=== PATIENT | male | born 2000 | race Two or more races ===

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

== ENCOUNTER 2025-02-21 12:31 | Emergency (ER) | payer MEDICAID ==
[~2025-02-21] VITALS: Ht 175.3 cm; Wt 77.0 kg
--- NOTE | 2025-02-21 13:16 | ED.PDOC ---
Musculoskeletal HPI Comments 24 year old male presents to the ED with a chief complaint of bilateral great toes ingrown nails onset 2 months. Mother states patient has been experiencing ingrown nails for the past 2 months, toes are swollen with erythema and tender to touch. Denies injury, numbness/tingling, nausea, vomiting, diarrhea, headache. No other symptoms or modifying factors present at this time. Time Seen by MD: 13:10 Primary Care Provider: Juan Estrada Notes: Medications, Allergies Allergies: Coded Allergies: NO KNOWN ALLERGIES (Unverified , 12/23/12) Home Meds Active Scripts Cephalexin (KEFLEX CAPSULE) 250 Mg Cp, 250 MG PO QID for 7 Days, #28 BOTTLE Prov:PILAR STEWART MD 02/21/25 Information Source: Patient, Relative (Mother) Mode of Arrival: Ambulatory Location: Bilateral Extremity Location: Great Toe Timing: Months Prehospital treatment: None Severity: Moderate Able to Move Extremity: Yes Bear Weight: Limited Pain: Moderate Mechanism: Other Circumstances: Other Onset of Symptoms: Spontaneous Symptoms: Pain, Erythema DVT Risk Factors: NONE Associated signs and symptoms: Other Past Medical History PAST MEDICAL HISTORY: Denies Surgical History: Denies all surgeries Family History Family History: Unknown Social History Smoker: Non-Smoker Alcohol: Denies ETOH Use Drugs: Denies Drug Use Lives In: Home Constitutional: denies: chills, diaphoresis, fatigue, fever, malaise, sweats, weakness, others EENTM: denies: blurred vision, double vision, ear bleeding, ear discharge, ear drainage, ear pain, ear ringing, eye pain, eye redness, hearing loss, mouth pain, mouth swelling, nasal discharge, nose bleeding, nose congestion, nose pain, photophobia, tearing, throat pain, throat swelling, voice changes, others Respiratory: denies: cough, hemoptysis, orthopnea, SOB at rest, shortness of breath, SOB with excertion, stridor, wheezing, others Cardiovascular: denies: chest pain, dizzy spells, diaphoresis, Dyspnea on exertion, edema, irregular heart beat, left arm pain, lightheadedness, palpitations, PND, syncope, others Gastrointestinal: denies: abdomen distended, abdominal pain, blood streaked bowels, constipated, diarrhea, dysphagia, difficulty swallowing, hematemesis, melena, nausea, poor appetite, poor fluid intake, rectal bleeding, rectal pain, vomiting, others Genitourinary: denies: burning, dysuria, flank pain, frequency, hematuria, incontinence, penile discharge, penile sore, pain, testicle pain, testicle swelling, urgency, others Neurological: denies: dizziness, fainting, headache, left sided numbness, left sided weakness, numbness, paresthesia, pre-existing deficit, right sided numbness, right sided weakness, seizure, speech problems, tingling, tremors, weakness, others Musculoskeletal: reports: others (bilateral great toe ingrown nail); denies: back pain, gout, joint pain, joint swelling, muscle pain, muscle stiffness, neck pain Integumetry: denies: bruises, change in color, change in hair/nails, dryness, laceration, lesions, lumps, rash, wounds, others Allergic/Immunocompromised: denies: Difficulty Healing, Frequent Infections, Hives, Itching, others Hematologic/Lymphatic: denies: anemia, blood clots, easy bleeding, easy bruising, swollen glands, others Endocrine: denies: excessive hunger, excessive sweating, excessive thirst, excessive urination, flushing, intolerance to cold, intolerance to heat, unexplained weight gain, unexplained weight loss, others Psychiatric: denies: anxiety, bipolar disorder, depression, hopeless, panic disorder, schizophrenia, sleepless, suicidal, others All Other Systems: Reviewed and Negative Physical Exam General Appearance: Moderate Distress, Normal HEENT: Normal ENT Inspection, Pharynx Normal, TMs Normal Neck: Full Range of Motion, Non-Tender, Normal, Normal Inspection Respiratory: Chest Non-Tender, Lungs Clear, No Accessory Muscle Use, No Respiratory Distress, Normal Breath Sounds Cardiovascular: No Edema, No JVD, No Murmur, No Gallop, Normal Peripheral Pulses, Regular Rate/Rhythm Breast Exam: Deferred Gastrointestinal: No Organomegaly, Non Tender, No Pulsatile Mass, Normal Bowel Sounds, Soft Genitalia: Deferred Pelvic: Deferred Rectal: Deferred Extremities: No calf tenderness, Normal capillary refill, Normal inspection, Normal range of motion, Non-tender, No pedal edema Musculoskeletal : Apperance: Normal Neurologic: Alert, graduate studies dean II-XII nml as Tested, No Motor Deficits, Normal Affect, Normal Mood, No Sensory Deficits Cerebellar Function: Normal Reflexes: Normal Skin: Dry, Normal Color, Warm Peripheral Pulses: 3+ Radial (R), 3+ Radial (L) Lymphatic: No Adenopathy Was a procedure done? Was a procedure done?: No Differential Diagnosis EXT Differential Diagnosis: Cellulitis, Sprain X-Ray, Labs, Meds, VS Patient alert. Has been treated here for ingrown toenail. Mild redness around his toes. Vitals stable. Answering questions. To prevent any infection he was given prescription of Keflex antibiotic. Was given referral to crew boss. Explained to the family. Was told to follow up with his primary care physician. Was told to come back if there is any problem. Time of 1ST Reevaluation: 13:40 Reevaluation 1ST: Improved Patient Education/Counseling: Diagnosis, Treatment, Prognosis Family Education/Counseling: Diagnosis, Treatment, Prognosis Departure 1 Departure Time of Disposition: 14:17 Impression: Primary Impression: Ingrowing toenail Disposition: 01 HOME / SELF CARE / HOMELESS Condition: Good e-Prescriptions Cephalexin (KEFLEX CAPSULE) 250 Mg Cp 250 MG PO QID for 7 Days, #28 BOTTLE Prov: PILAR STEWART MD 02/21/25 Discharged With: Self Critical Care Note Critical Care Time?: No Stability Stability form required: No Heart Score Heart Score: Heart Score Response (Comments) Value History N/A 0 EKG N/A 0 Age N/A 0 Risk Factors N/A 0 Troponin N/A 0 Total 0 I personally scribed for PILAR STEWART MD ([email or web address]) on 02/21/25 at 13:16. Electronically submitted by Maria Teresa Holbrook ([email or web address]). PILAR STEWART MD Feb 21, 2025 13:16
[2025-02-21] MEDS ORDERED: CEPH250C PO (14:18)
[2025-02-21 14:40] VITALS: BP 136/82; PULSE 76; RESP 16; TEMP 97.8; O2SAT 98
== END 2025-02-21 14:49 | disposition home or self-care (01) ==
LOC: ER 12:31
DX: L60.0 Ingrowing nail (principal)

== ENCOUNTER 2025-02-23 18:26 | Emergency (ER) | payer MEDICAID ==
[~2025-02-23] VITALS: Ht 175.3 cm; Wt 82.9 kg
[~2025-02-23 18:26] MED LIST: CEPH250C PO
--- NOTE | 2025-02-23 18:50 | ED.PDOC ---
HPI Allergic reaction HPI Comments 24 year old male presents to the ED with a chief complaint of allergic reaction onset today (02/23/25). Patient has PMHX hard of hearing, mother translates for him. Mother states patient took Keflex 250mg, was prescribed for ingrown toe nail, shortly after began experiencing generalized rash with no difficulty br eathing. Denies chest pain, shortness of breath, sore throat, dizziness, blurry vision, nausea, vomiting, fevers. No other symptoms or modifying factors present at this time. Chief Complaint: Allergic Reaction Time Seen by MD: 18:40 Primary Care Provider: NONE Reviewed Notes: Nurses Notes, Medications, Allergies Allergies: Coded Allergies: Cephalexin (Verified Allergy, Severe, URTICARIA, SOB, 02/23/25) Home Meds Active Scripts Cephalexin (KEFLEX CAPSULE) 250 Mg Cp, 250 MG PO QID for 7 Days, #28 BOTTLE Prov:PILAR STEWART MD 02/21/25 Information Source: Patient, Relative (Mother) Mode of Arrival: Ambulatory Severity: Moderate Rash: Moderate SOB: None Difficulty swallowing: None Pruritus: None Timing: Hours Duration: Since onset Prehospital treatment: None Location: Generalized Exposed to: Medication (keflex) Developed: Rash History of: None Associated Sign and Symptoms: None Past Medical History Past Medical History (Other): hard of hearing Surgical History: Denies all surgeries Family History Family History: Unknown Social History Smoker: Non-Smoker Alcohol: Denies ETOH Use Drugs: Denies Drug Use Lives In: Home Constitutional: denies: chills, diaphoresis, fatigue, fever, malaise, sweats, weakness, others EENTM: denies: blurred vision, double vision, ear bleeding, ear discharge, ear drainage, ear pain, ear ringing, eye pain, eye redness, hearing loss, mouth pain, mouth swelling, nasal discharge, nose bleeding, nose congestion, nose pain, photophobia, tearing, throat pain, throat swelling, voice changes, others Respiratory: denies: cough, hemoptysis, orthopnea, SOB at rest, shortness of breath, SOB with excertion, stridor, wheezing, others Cardiovascular: denies: chest pain, dizzy spells, diaphoresis, Dyspnea on exertion, edema, irregular heart beat, left arm pain, lightheadedness, palpitations, PND, syncope, others Gastrointestinal: denies: abdomen distended, abdominal pain, blood streaked bowels, constipated, diarrhea, dysphagia, difficulty swallowing, hematemesis, melena, nausea, poor appetite, poor fluid intake, rectal bleeding, rectal pain, vomiting, others Genitourinary: denies: burning, dysuria, flank pain, frequency, hematuria, incontinence, penile discharge, penile sore, pain, testicle pain, testicle swelling, urgency, others Neurological: denies: dizziness, fainting, headache, left sided numbness, left sided weakness, numbness, paresthesia, pre-existing deficit, right sided numbness, right sided weakness, seizure, speech problems, tingling, tremors, weakness, others Musculoskeletal: denies: back pain, gout, joint pain, joint swelling, muscle pain, muscle stiffness, neck pain, others Integumetry: reports: rash (hives all over body); denies: bruises, change in color, change in hair/nails, dryness, laceration, lesions, lumps, wounds, others Allergic/Immunocompromised: denies: Difficulty Healing, Frequent Infections, Hives, Itching, others Hematologic/Lymphatic: denies: anemia, blood clots, easy bleeding, easy bruising, swollen glands, others Endocrine: denies: excessive hunger, excessive sweating, excessive thirst, excessive urination, flushing, intolerance to cold, intolerance to heat, unexplained weight gain, unexplained weight loss, others Psychiatric: denies: anxiety, bipolar disorder, depression, hopeless, panic disorder, schizophrenia, sleepless, suicidal, others All Other Systems: Reviewed and Negative Physical Exam General Appearance: Normal HEENT: Normal ENT Inspection, Pharynx Normal, TMs Normal, Other (no tongue swelling noted) Neck: Full Range of Motion, Non-Tender, Normal, Normal Inspection Respiratory: Chest Non-Tender, Lungs Clear, No Accessory Muscle Use, No Respiratory Distress, Normal Breath Sounds, Other (no airway obstruction noted) Cardiovascular: No Edema, No JVD, No Murmur, No Gallop, Normal Peripheral Pulses, Regular Rate/Rhythm Breast Exam: Deferred Gastrointestinal: No Organomegaly, Non Tender, No Pulsatile Mass, Normal Bowel Sounds, Soft Genitalia: Deferred Pelvic: Deferred Rectal: Deferred Extremities: No calf tenderness, Normal capillary refill, Normal inspection, Normal range of motion, Non-tender, No pedal edema Musculoskeletal : Apperance: Normal Neurologic: Alert, purchasing internship II-XII nml as Tested, No Motor Deficits, Normal Affect, Normal Mood, No Sensory Deficits Cerebellar Function: Normal Reflexes: Normal Skin: Rash (diffused hives all over body) Lymphatic: No Adenopathy Was a procedure done? Was a procedure done?: No Differential diagnosis (all) Differential Diagnosis: Anaphylaxis, Angioedema, Drug Reaction, Hypotension X-Ray, Labs, Meds, VS Vital Signs Date Time Temp Pulse Resp B/P (MAP) Pulse Ox O2 Delivery O2 Flow Rate FiO2 02/23/25 18:56 98.2 90 24 132/86 (101) 97 98.2 02/23/25 18:35 97.6 92 21 150/72 (98) 97 97.6 Current Medications Medications (Trade) Dose Ordered Sig/Vicki Route Start Time Stop Time Status Last Admin Diphenhydramine HCl (Benadryl Injection) 25 mg ONCE ONCE IM 02/23/25 18:45 02/23/25 18:46 DC 02/23/25 18:53 Methylprednisolone Sodium Succinate (Solu Medrol) 125 mg ONCE ONCE IM 02/23/25 18:45 02/23/25 18:46 DC 02/23/25 18:54 X-Ray, Labs, Meds, VS Comment Imaging: X-rays and CT scans were reviewed and interpreted by this provider, imaging shows no fractures and no pathological disease. Pending radiology review. Laboratory: Labs reviewed and interpreted by this provider. No significant abnormalities noted. Patient has prior medical visits reviewed. Med reconciliation performed Vital signs reviewed Time of 1ST Reevaluation: 19:10 Reevaluation 1ST: Unchanged Time of 2ND Reevaluation: 19:42 Reevaluation 2ND: Improved Patient Education/Counseling: Diagnosis, Treatment, Prognosis, Need For Follow Up (Follow up PCP next available appointment. Return to the emergency department if symptoms worsen.) Family Education/Counseling: Diagnosis, Treatment, Prognosis SEPSIS Sepsis Screen Vital Signs Date Time Temp Pulse Resp B/P (MAP) Pulse Ox O2 Delivery O2 Flow Rate FiO2 02/23/25 18:56 98.2 90 24 132/86 (101) 97 98.2 02/23/25 18:35 97.6 92 21 150/72 (98) 97 97.6 Medications Medications Dose Ordered Sig/Vicki Route Start Time Stop Time Status Last Admin Dose Admin Diphenhydramine HCl 25 mg ONCE ONCE IM 02/23/25 18:45 02/23/25 18:46 DC 02/23/25 18:53 Methylprednisolone Sodium Succinate 125 mg ONCE ONCE IM 02/23/25 18:45 02/23/25 18:46 DC 02/23/25 18:54 Departure 1 Departure Time of Disposition: 19:42 Impression: Primary Impression: Ingrowing toenail Additional Impression: Allergic reaction due to antibacterial drug Disposition: HOME / SELF CARE / HOMELESS Condition: Fair e-Prescriptions Sulfamethoxazole W/Trimethopri (Bactrim Ds Tablet) 1 Tab Tb 1 TAB PO BID for 7 Days, #14 TAB Prov: NASIM MURCIA 02/23/25 Discharged With: Self Comments Discontinue Keflex Critical Care Note Critical Care Time?: No Stability Stability form required: No I personally scribed for NASIM MURCIA ([email or web address]) on 02/23/25 at 18:50. Electronically submitted by Maria Teresa Holbrook ([email or web address]). NASIM MURCIA Feb 23, 2025 18:50
[2025-02-23] MEDS: diphenhdrAMINE HCL 50 MG/1 ML VL IM ONE (18:53)
[2025-02-23] MEDS: methylPREDNISolone SOD SUCC 125 MG/2 ML VL IM ONE (18:54)
[2025-02-23 18:56] VITALS: BP 132/86; PULSE 90; RESP 24; TEMP 98.2; O2SAT 97
[2025-02-23] MEDS ORDERED: BACDST PO (19:43)
== END 2025-02-23 20:01 | disposition home or self-care (01) ==
LOC: ER 18:26
DX: L60.0 Ingrowing nail (principal); T36.95XA Adverse effect of unspecified systemic antibiotic, initial encounter; Z79.899 Other long term (current) drug therapy; Z88.1 Allergy status to other antibiotic agents; Y92.89 Other specified places as the place of occurrence of the external cause
CPT/HCPCS: 96372; 99284; J1200; J2919